=== PATIENT | male | born 1955 | race Caucasian/White ===

== ENCOUNTER 2016-07-21 08:06 | Day surgery (SDC) | payer BC ==
[~2016-07-21] VITALS: Ht 175.3 cm; Wt 78.1 kg
--- NOTE | ~2016-07-21 | OR ---
PATIENT'S NAME: CLEMENTINA HUNTER [facility] AGE: 61 Y [address] ROOM: [place] [address] LOCATION: [facility] ADMIT DATE: 07/21/2016 OR/Procedure Report DISCHARGE DATE: 07/21/2016 FAMILY PHYSICIAN: Hay Stout MD ATTENDING PHYSICIAN: George Pryor SURGEON: George Pryor DO [employer] [place]: DATE OF PROCEDURE: 07/21/2016 PREOPERATIVE DIAGNOSIS: Intercostal hernia, status post robotic lobectomy. POSTOPERATIVE DIAGNOSIS: Intercostal hernia, status post robotic lobectomy. PROCEDURES PERFORMED: Repair of intercostal hernia with primary reinforcement and patch overlay. BRIEF HISTORY: Mr. Hunter had undergone a left robotic lobectomy. He is approximately three months from surgery. He is having a bulge just medial to the intercostal incision where we had removed his incision or his specimen. He has been brought to the Operative Suite today for exploration of the area. DESCRIPTION OF OPERATION: This previous incision had been marked. He was placed under general anesthetic. The incision was opened and slightly enlarged. The intercostal space was thinned. No gross herniation could be noticed in the supine position, and we reinforced all of the muscular layers, which resulted in a much tighter area. This was accomplished with 0 Ethibond. We then utilized an onlay mesh secured with 0 Ethibond again to further strengthen the area. Copious irrigation was carried out with antibiotic-infused saline. Electrocautery was used for hemostasis. WOUND CLOSURE: Then, the incision was closed in a layered fashion with 2-0 Vicryl and 4-0 Monocryl. Pressure dressings were applied. POSTOPERATIVE CONDITION: The patient was transferred to the Outpatient Recovery area in stable condition. GEORGE PRYOR DO MCB/modl PATIENT'S NAME: CLEMENTINA HUNTER [facility] AGE: 61 Y [address] ROOM: [place] [address] LOCATION: [facility] ADMIT DATE: 07/21/2016 OR/Procedure Report DISCHARGE DATE: 07/21/2016 FAMILY PHYSICIAN: Hay Stout MD ATTENDING PHYSICIAN: George Pryor /[id number] d: 07/25/162014 t: 07/26/16 1141, OPERATIVE SUMMARY
[~2016-07-21 08:06] MED LIST: ASPIRIN325 MG PO; B COMPLEX1 EACH PO; CARDIZEM CD (T240 MG PO; CLONAZEPAM1 MG PO; COLCHICINE0.6 MG PO; COMPAZINE10 MG PO; CORDARONE,PACE200 MG PO; COZAAR50 MG PO; ELIQUIS5 MG PO; MAG-OX-400(241400 MG PO; MELATONIN PO; MIRALAX17 GM PO; NORCO 5-325 TA1 EACH PO; PROTONIX20 MG PO; PROZAC10 MG PO; SOMA350 MG PO; TOPROL XL25 MG PO; TYLENOL325 MG PO; VALTREX1000 MG PO; VITAMIN D-32000 UNI1 PO; VITAMIN D1000 UNIT PO; VITAMIN E400 UNI1 PO; [UNRECOGNIZED DRUG - OTHER] PO; [UNRECOGNIZED DRUG - OTHER] PO
[2016-07-21 09:24] LABS: BASOPHIL % 0.2 %; EOSINOPHIL % 0.6 %; HEMATOCRIT 32.8 % (37.0-53.0); HEMOGLOBIN 10.7 g/dL (11.0-16.0); IMMATURE GRANULOCYTE # 0.2 K/uL (0.0-0.3); IMMATURE GRANULOCYTE % 2.5 %; LYMPHOCYTE # 1.2 K/uL (0.8-4.0); LYMPHOCYTE % 18.8 %; MCH 31.1 pg (27.0-34.0); MCHC 32.6 gm/dL (32.0-36.5); MCV 95.3 fl (83.0-98.0); MONOCYTE # 0.6 K/uL (0.0-1.0); MONOCYTE % 8.9 %; MPV 10.2 fl (9.4-12.4); NEUTROPHIL # (ANC) 4.4 K/uL (1.4-9.0); NRBC % 0 /100WBC (0-0.00); RBC 3.44 M/uL (3.50-5.50); WBC 6.3 K/uL (4.0-11.0)
[2016-07-21 09:26] LABS: PLATELET COUNT 105 K/uL (150-450); RDW-CV 17.7 % (11.9-14.6)
[2016-07-21 09:31] LABS: PROTIME 10.5 SECONDS (9.6-11.1)
[2016-07-21 09:39] LABS: ALBUMIN 3.6 gm/dL (3.5-5.0); ANION GAP 12.9 (10.0-19.0); BLOOD UREA NITROGEN 15 mg/dL (6-24); CALCIUM 8.6 mg/dL (8.5-10.5); CHLORIDE 106 mMol/L (96-110); CO2 26 mMol/L (22-32); CREATININE 0.9 mg/dL (0.6-1.3); ESTIMATED GFR (MDRD EQUATION) > 60; PHOSPHORUS 3.7 mg/dL (2.5-4.9); POTASSIUM 3.9 mMol/L (3.7-5.1); SODIUM 141 mMol/L (135-145)
[2016-07-21] MEDS ORDERED: PERCOCET 5-3251 EACH PO (11:16)
--- NOTE | 2016-07-21 11:25 | NUR ---
PERCOCET 5/325 MG 2 TABS PO FOR PAIN
== END 2016-07-21 12:45 | disposition disaster alternative care site (69) ==
LOC: GPOC 08:06 → GSDC 08:06 → GPCU 08:09 → GSDC 12:45 → GPOC 16:00
PROVIDERS: Thoracic Surgery (Cardiothoracic Vascular Surgery)
PROC: 0WQF0ZZ Repair Abdominal Wall, Open Approach (ICD-10-PCS; principal; 2016-07-21)
DX: K43.2 Incisional hernia without obstruction or gangrene (principal); I10 Essential (primary) hypertension; Z87.891 Personal history of nicotine dependence; Z90.2 Acquired absence of lung [part of]; Z79.82 Long term (current) use of aspirin; Z79.899 Other long term (current) drug therapy
CPT/HCPCS: C1781; J0690; J1100; J1644; J2001; J2405; J3010; J7030